=== PATIENT | male | born 1980 | race Two or more races ===

== ENCOUNTER 2024-08-15 02:15 | Inpatient (IN) | payer BC, OTHER ==
[2024-08-15] VITALS (7 sets, daily range): BP systolic 139–168; BP diastolic 77–111; PULSE 67–100; RESP 14–21; TEMP 97.4–98.4; O2SAT 94–98
[~2024-08-15] VITALS: Ht 180.3 cm; Wt 118.3 kg
--- NOTE | 2024-08-15 02:51 | ED.PDOC ---
History of Present Illness HPI Comments 44 y/o M presents with sudden and unprovoked onset of right sided chest pain, with associated shortness of breath and nausea. Patient reports on symptoms beginning 2300, last night. He describes it as an 8/10 in severity and sharp in quality. He only has a history of uncontrolled HTN. No recent stressors, st renuous activities, sick contact, or injuries reported. Patient denies having any palpitations, vomiting, coughing, congestion, fever, chills, or further associated symptoms. Chief Complaint: Chest Pain Time Seen by MD: 02:30 Reviewed Notes: Nurses Notes, Medications, Allergies Allergies: Coded Allergies: NO KNOWN ALLERGIES (Unverified , 08/15/24) Information Source: Patient Mode of Arrival: Ambulatory Severity: Moderate Timing: Hours Duration: Since onset Prehospital treatment: None Past Medical History PAST MEDICAL HISTORY: HTN Surgical History: Denies all surgeries Family History Family History: Unknown Social History Smoker: Non-Smoker Alcohol: Denies ETOH Use Drugs: Denies Drug Use Lives In: Home All Other Systems: Reviewed and Negative (Comprehensive systems review obtained and negative except for what is stated in the HPI.) Physical Exam General Appearance: No Apparent Distress, Normal HEENT: Normal ENT Inspection, Pharynx Normal, TMs Normal Neck: Full Range of Motion, Non-Tender, Normal, Normal Inspection Respiratory: Chest Non-Tender, Lungs Clear, No Accessory Muscle Use, No Respiratory Distress, Normal Breath Sounds Cardiovascular: No Edema, No JVD, No Murmur, No Gallop, Normal Peripheral Pulses, Regular Rate/Rhythm Breast Exam: Deferred Gastrointestinal: No Organomegaly, Non Tender, No Pulsatile Mass, Normal Bowel Sounds, Soft Genitalia: Deferred Pelvic: Deferred Rectal: Deferred Extremities: No calf tenderness, Normal capillary refill, Normal inspection, Normal range of motion, Non-tender, No pedal edema Musculoskeletal : Apperance: Normal 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 Was a procedure done?: No Differential Dx Considerations may include: VA, PE, ACS, URI, PNA, viral syndrome, musculoskeletal pain, anxiety, angina, costochondritis, pericarditis, gastritis, among others X-Ray, Labs, Meds, VS Vital Signs Date Time Temp Pulse Resp B/P (MAP) Pulse Ox O2 Delivery O2 Flow Rate FiO2 08/15/24 04:55 62 11 177/109 08/15/24 04:54 177/109 08/15/24 04:25 69 15 179/102 08/15/24 03:54 198/107 08/15/24 03:35 98.4 70 21 198/107 (137) 100 98.4 08/15/24 03:35 70 21 96 Room Air* 0 21 08/15/24 03:34 73 12 171/106 08/15/24 03:23 67 08/15/24 03:04 72 18 189/105 08/15/24 02:38 72 08/15/24 02:32 97.3 71 20 189/105 (133) 100 97.3 Lab Test 08/15/24 03:23 08/15/24 02:30 Range/Units Troponin I High Sensitivity 5 6 </=54 ng/L White Blood Count 9.5 4.4-10.8 10^3/uL Red Blood Count 4.93 4.5-5.90 10^6/uL Hemoglobin 15.8 13.5-17.5 g/dL Hematocrit 45.4 41.0-53.0 % Mean Corpuscular Volume 92.2 80.0-100.0 fL Mean Corpuscular Hemoglobin 32.1 H 28.0-32.0 pg Mean Corpuscular Hemoglobin Concent 34.8 32.0-36.0 g/dL Red Cell Distribution Width 13.2 11.8-14.3 % Platelet Count 190 140-450 10^3/uL Mean Platelet Volume 8.6 6.9-10.8 fL Neutrophils (%) (Auto) 67.2 37.0-80.0 % Lymphocytes (%) (Auto) 21.8 10.0-50.0 % Monocytes (%) (Auto) 7.0 0.0-12.0 % Eosinophils (%) (Auto) 3.2 0.0-7.0 % Basophils (%) (Auto) 0.8 0.0-2.0 % Neutrophils # (Auto) 6.4 1.6-8.6 10 ^3/uL Lymphocytes # (Auto) 2.1 0.4-5.4 10 ^3/uL Monocytes # (Auto) 0.7 0-1.3 10 ^3/uL Eosinophils # (Auto) 0.3 0-0.8 10 ^3/uL Basophils # (Auto) 0.1 0-0.2 10 ^3/uL Nucleated Red Blood Cells 0.0 % Sodium Level 135 L 136-145 mmol/L Potassium Level 3.7 3.5-5.1 mmol/L Chloride Level 105 98-107 mmol/L Carbon Dioxide Level 19 L 20-31 mmol/L Anion Gap 11 5-15 Blood Urea Nitrogen 12 9-23 mg/dL Creatinine 0.90 0.700-1.30 mg/dL Glomerular Filtration Rate Calc 107 >90 mL/min BUN/Creatinine Ratio 13.3 10.0-20.0 Serum Glucose 254 H 74-106 mg/dL Calcium Level 8.7 8.7-10.4 mg/dL Current Medications Medications (Trade) Dose Ordered Sig/Dayo Route Start Time Stop Time Status Last Admin Sodium Chloride 1,000 ml @ 1,000 mls/hr Q1H ONCE IV 08/15/24 02:45 08/15/24 03:44 DC 08/15/24 03:02 Ondansetron HCl (Zofran) 4 mg ONCE ONCE IV 08/15/24 02:45 08/15/24 02:46 DC 08/15/24 02:58 Morphine Sulfate 4 mg ONCE ONCE IV 08/15/24 02:45 08/15/24 02:46 DC 08/15/24 03:04 Aspirin 324 mg ONCE ONCE PO 08/15/24 02:45 08/15/24 02:46 DC 08/15/24 02:58 Nitroglycerin (Ntrostat Sublingual) 0.4 mg ONCE ONCE SL 08/15/24 04:00 08/15/24 04:01 DC 08/15/24 03:54 Morphine Sulfate 4 mg ONCE ONCE IV 08/15/24 04:15 08/15/24 04:16 DC 08/15/24 04:25 Ondansetron HCl (Zofran) 4 mg ONCE ONCE IV 08/15/24 04:15 08/15/24 04:16 DC 08/15/24 04:24 Time of 1ST Reevaluation: 03:00 Reevaluation 1ST: Unchanged Patient Education/Counseling: Diagnosis, Treatment Family Education/Counseling: No Family Present Additional Information Previous visits reviewed: N/A The following tests were ordered, and results were reviewed by me: CMP, CBC, EKG, BMP, CXR, troponin Additional Information was gathered from interviewing the following independent historians: N/A I reviewed and agreed with the following test results read by other providers: CXR I discussed treatment and results with medical personnel and: patient Departure 1 Departure Time of Disposition: 05:28 (Patient presented with abdominal pain that was concerning for possible appendicits, gastritis, cholecystitis, colitis, gastroenteritis, sbo, or orther possible surgical emergency. Data: 1. I ordered and reviewed the result of at least 3 labs including a CBC, BMP, and Urinalysis. 2. I independently interpreted the following tests: CT Abdoment and Pelvis is concerning for acute cholecystitis.Risk:This patient has a high risk of morbidity due to further diagnostic testing or treatment and may suffer from an acute abdominal process disorder. Workup reveals concern for acute cholecystitis and patient should be admitted for further workup. and possible expert consultation. ) Impression: Primary Impression: Acute cholecystitis Additional Impression: Intractable abdominal pain Disposition: ADMITTED INPATIENT Admit to: Med Surg Condition: Serious Critical Care Note Critical Care Time?: Yes Critical care comment: Intractable abdominal pain Authorized and Performed by: Adolfo Etienne MD Total critical care time: Approximately 42 minutes Due to a high probability of clinically significant, life threatening deterioration, the patient required my highest level of preparedness to intervene emergently and I personally spent this critical care time directly and personally managing the patient. This critical care time included obtaining a history; examining the patient; pulse oximetry; ordering and review of studies; arranging urgent treatment with development of a management plan; evaluation of patient's response to treatment; frequent reassessment; and, discussions with other providers. This critical care time was performed to assess and manage the high probability of imminent, life-threatening deterioration that could result in multi-organ failure. It was exclusive of separately billable procedures and treating other patients and teaching time. Please see my other sections and the rest of the note for further information on patient assessment and treatment. Stability Stability form required: No Heart Score Heart Score: Heart Score Response (Comments) Value History Slightly Suspicious 0 EKG Normal 0 Age 45-64 1 Risk Factors 1 or 2 risk factors 1 Troponin Normal limit 0 Total 2 I personally scribed for ADOLFO ETIENNE MD ([email or web address]) on 08/15/24 at 02:51. Electronically submitted by Wolfgang Bush ([email or web address]). ADOLFO ETIENNE MD Aug 15, 2024 02:51
[2024-08-15 02:58] LABS: Basophils # (auto) 0.1 10 ^3/uL (0-0.2); Basophils % (auto) 0.8 % (0.0-2.0); Eosinophils # (auto) 0.3 10 ^3/uL (0-0.8); Eosinophils % (auto) 3.2 % (0.0-7.0); Hematocrit 45.4 % (41.0-53.0); Hemoglobin 15.8 g/dL (13.5-17.5); Lymphocytes # (auto) 2.1 10 ^3/uL (0.4-5.4); Lymphocytes % (auto) 21.8 % (10.0-50.0); Mean Corpuscular Hemoglobin 32.1 pg (28.0-32.0); Mean Corpuscular Hgb Conc. 34.8 g/dL (32.0-36.0); Mean Corpuscular Volume 92.2 fL (80.0-100.0); Monocytes # (auto) 0.7 10 ^3/uL (0-1.3); Neutrophils # (auto) 6.4 10 ^3/uL (1.6-8.6); Neutrophils % (auto) 67.2 % (37.0-80.0); Platelet Count (auto) 190 10^3/uL (140-450); Red Blood Cells 4.93 10^6/uL (4.5-5.90); Red Cell Distribution Width 13.2 % (11.8-14.3); White Blood Cell 9.5 10^3/uL (4.4-10.8)
[2024-08-15] MEDS: ASPirin 81 mg TAB PO ONE (02:58)
[2024-08-15] MEDS: ONDANSETRON HCL 4 MG/2 ML VIAL IV ONE ×2 (02:58→04:24)
[2024-08-15] MEDS: SODIUM CHLORIDE 0.9% 1,000 ML IV ONE (03:02)
[2024-08-15] MEDS: MORPHINE SULFATE 4 MG/ML SYR/VIAL IV ONE ×2 (03:04→04:25)
[2024-08-15] MEDS: NITROGLYCERIN 0.4 MG SL TAB SL ONE (03:54)
--- NOTE | 2024-08-15 03:57 | DVH ---
CHEST RADIOGRAPH Indication: CHEST PAIN Technique: Single frontal view of the chest was obtained COMPARISON: None FINDINGS: Lines and Tubes: None Lungs: Clear Pleura: No effusion. No pneumothorax. Cardiomediastinal contours: Unremarkable Bones: Unremarkable IMPRESSION: 1. No acute disease.
[2024-08-15 04:15] LABS: Chloride 105 mmol/L (98-107); Potassium 3.7 mmol/L (3.5-5.1)
[2024-08-15 04:16] LABS: Anion Gap 11 (5-15)
[2024-08-15 04:19] LABS: Calcium 8.7 mg/dL (8.7-10.4); Carbon Dioxide 19 mmol/L (20-31); Sodium 135 mmol/L (136-145)
[2024-08-15 04:22] LABS: Blood Urea Nitrogen 12 mg/dL (9-23); Glucose 254 mg/dL (74-106)
[2024-08-15 04:23] LABS: BUN/Creatinine Ratio 13.3 (10.0-20.0)
[2024-08-15] MEDS: IOHEXOL 300 MG/ML 100ML BOTTLE IJ ONE (04:44)
--- NOTE | 2024-08-15 05:11 | DVH ---
Exam: CT CT AB PEL WITH IV CON ONLY History: Abdominal pain Comparison Study: None Contrast: Type of contrast: Contrast injected: Contrast wasted: 0 TECHNIQUE: A digital wall man image was obtained. During the uneventful, intravenous administration of c ontrast material, multislice data acquisition was obtained through the abdomen and pelvis. The data s et was subsequently reconstructed into axial images. Images were reviewed on a work station using a c ombination of axial and multiplanar using a variety of window levels and settings. Radiation Dose Information: CT Dose: CTDI volume is 27.19 mGy. Dose-length product is 1603.91 mGy*cm FINDINGS: Lung Bases: Bibasilar atelectasis. Normal heart size. No pleural or pericardial effusion. Liver: The liver is normal in size. No focal lesions. Diffusely hypoattenuating liver parenchyma con sistent with hepatic steatosis. Normal hepatic vascular enhancement. Gallbladder and Biliary Tree: Gallstone. Mild pericholecystic fat stranding. No intrahepatic or extra hepatic biliary ductal dilatation. Spleen: Unremarkable Pancreas: The pancreas is normal in appearance without focal lesions or abnormal enhancement. Adrenal Glands: Unremarkable Kidneys: Kidneys demonstrate normal symmetric enhancement without focal lesions, calculi or hydroneph rosis. Bladder: Unremarkable Bowel: The stomach is grossly normal in appearance. The small bowel is normal in caliber. Sigmoid di verticulosis without acute diverticulitis. Normal appendix. Peritoneum: No pneumoperitoneum. No ascites. Lymphadenopathy: No mesenteric, retroperitoneal or periportal lymphadenopathy. Abdominal Wall and Mesentery: Unremarkable. Vasculature: The visualized abdominal aorta is normal in size and caliber. Abdominal and pelvic vess els demonstrate normal enhancement. Pelvic Organs: Unremarkable Musculoskeletal: No aggressive focal bony lesions, acute fractures or dislocation. Soft tissues: Unremarkable. IMPRESSION: 1. Gallstone and pericholecystic fat stranding. Right upper quadrant ultrasound is recommended for fu rther evaluation. Acute cholecystitis is not excluded. 2. Hepatic steatosis. 3. Sigmoid diverticulosis without acute diverticulitis. All CT scans at this medical facility are performed using dose modulation techniques as appropriate t o a performed exam including the following: Automated exposure control was utilized; adjustment of th e MA and/or KV according to patient size; and use of iterative reconstruction technique.
[2024-08-15] MEDS: KETAMINE 50mg/ML 10ml Vial (500mg/10ml) IV ONE ×2 (05:33→05:35)
[2024-08-15] MEDS: metroNIDAZOLE 500MG/100ML 100 ML IV ONE (05:36)
--- NOTE | 2024-08-15 06:36 | ECG ---
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
--- NOTE | 2024-08-15 06:42 | ECG ---
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
[2024-08-15] MEDS: ceFAZolin 2 GM/D5W50ml 50 ML IV ONE (06:46)
[2024-08-15] MEDS ORDERED: MORPHINE SULFATE INJ 2 MG/ml SYRG IV PRN (07:45)
[2024-08-15] MEDS ORDERED: DOCUSATE SOD 100 MG CAP PO PRN (07:45)
[2024-08-15] MEDS ORDERED: ONDANSETRON HCL 4 MG/2 ML VIAL IV PRN (07:45)
--- NOTE | 2024-08-15 07:53 | DVH ---
INDICATION: pain, nausea TECHNIQUE: Multiple real-time sonographic images of the abdomen were obtained. COMPARISON: None FINDINGS: Liver is increased in echogenicity. The liver measures 16.8 cm. No intrahepatic biliary ductal dilatation is noted. The gallbladder wall measures 0.4 cm and is unremarkable. Cholelithiasis. No pericholecystic fluid or edema. The common duct measures 0.6 cm and is unremarkable. The right kidney measures 11.3 cm. No hydronephrosis. The left kidney measures 11.9 cm. No hydronephr osis. The spleen measures 12.3 cm, within normal limits. The echogenicity is within normal limits. The pancreas is not well visualized due to obscuration from bowel gas. The visualized portions of the IVC and aorta are grossly unremarkable. IMPRESSION: Hepatomegaly and hepatic steatosis. Cholelithiasis and mildly thickened gallbladder wall.
--- NOTE | 2024-08-15 07:56 | DVHHP2 ---
History of Present Illness Reason for Visit: Chest pain History of Present Illness Brandon Mobley is a 44-year-old male with past medial history of hypertension, but has not been on medication for over 4 years due to losing weight. Patient comes in today with complaints of chest pain. He states the pain is epigastric and radiates to his RUQ. States the pain started about 1999 last night after eating an asada quesadilla about 1900. He does have associated nausea with the pain. Past Surgical History: None Smoke: <1 pack per day ALCOHOL: heavy (daily, about 3 beers) Drugs: Marijuana Lives: with Family Domestic Violence: Neg Review of Systems Constitutional: No: Fever, Chills, Sweats, Weakness, Malaise, Other Eyes: No: Pain, Vision change, Conjunctivae inflammation, Eyelid inflammation, Other, Redness ENT: No: Ear pain, Ear discharge, Nose pain, Nose discharge, Nose congestion, Mouth pain, Mouth swelling, Throat pain, Throat swelling, Other Respiratory: No: Cough, Dry, Shortness of breath, SOB with excertion, Wheezing, Hemoptysis, Pleuritic Pain, Sputum, Wheezing, Other Cardiovascular: Chest Pain (epigastric); No: Palpitations, Orthopnea, Paroxysmal Noc. Dyspnea, Edema, Lt Headedness, Other Gastrointestinal: Nausea, Abdominal Pain; No: Vomiting, Diarrhea, Constipation, Melena, Hematochezia, Other Genitourinary: No Dysuria, No Frequency, No Incontinence, No Hematuria, No Retention, No Other Musculoskeletal: No: other, neck pain, shoulder pain, arm pain, back pain, hand pain, leg pain, foot pain Skin: No: Rash, Lesions, Jaundice, Bruising, Other Neurological: No: Weakness, Numbness, Incoordination, Change in speech, Confusion, Seizures, Other Allergies: Coded Allergies: NO KNOWN ALLERGIES (Unverified , 08/15/24) Medications Current Medications Medications Dose Ordered Sig/Dayo Route Start Time Stop Time Status Last Admin Dose Admin Sodium Chloride 1,000 ml @ 100 mls/hr Q10H IV 08/15/24 07:45 UNV Acetaminophen/ Hydrocodone Bitart 1 tab Q4HP PRN PO 08/15/24 07:45 UNV Ondansetron HCl 4 mg Q4HP PRN IV 08/15/24 07:45 UNV Docusate Sodium 100 mg BIDPRN PRN PO 08/15/24 07:45 UNV Acetaminophen 650 mg Q6HP PRN PO 08/15/24 07:45 UNV Morphine Sulfate 4 mg Q4HPRN PRN IV 08/15/24 07:45 UNV Hydrochlorothiazide 25 mg DAILY PO 08/15/24 10:00 UNV Hydralazine HCl 10 mg Q6HP PRN IV 08/15/24 07:45 UNV Exam Vital Signs Vital Signs Date Time Temp Pulse Resp B/P (MAP) Pulse Ox O2 Delivery O2 Flow Rate FiO2 08/15/24 07:00 72 18 184/107 (132) 98 08/15/24 03:35 98.4 98.4 08/15/24 03:35 Room Air* 0 21 General Appearance: Alert, Oriented X3, Cooperative, moderate distress HEENT: Atraumatic, PERRLA Respiratory: Clear to auscultation, Normal air movement Cardiovascular: Regular rate, Normal S1, Normal S2 Abdominal: Normal bowel sounds, Soft, Other (RUQ pain) Extremities: No clubbing, No cyanosis, No edema, Normal pulses, No tenderness/swelling Skin: No rashes, No breakdown, No significant lesion Neuro: Normal gait, Normal speech, Strength at 5/5 X4 ext, Normal tone Psych/Mental Status: Mental status NL, Mood NL Labs/Xrays Labs Test 08/15/24 03:23 08/15/24 02:30 Range/Units Troponin I High Sensitivity 5 </=54 ng/L White Blood Count 9.5 4.4-10.8 10^3/uL Red Blood Count 4.93 4.5-5.90 10^6/uL Hemoglobin 15.8 13.5-17.5 g/dL Hematocrit 45.4 41.0-53.0 % Mean Corpuscular Volume 92.2 80.0-100.0 fL Mean Corpuscular Hemoglobin 32.1 H 28.0-32.0 pg Mean Corpuscular Hemoglobin Concent 34.8 32.0-36.0 g/dL Red Cell Distribution Width 13.2 11.8-14.3 % Platelet Count 190 140-450 10^3/uL Mean Platelet Volume 8.6 6.9-10.8 fL Neutrophils (%) (Auto) 67.2 37.0-80.0 % Lymphocytes (%) (Auto) 21.8 10.0-50.0 % Monocytes (%) (Auto) 7.0 0.0-12.0 % Eosinophils (%) (Auto) 3.2 0.0-7.0 % Basophils (%) (Auto) 0.8 0.0-2.0 % Neutrophils # (Auto) 6.4 1.6-8.6 10 ^3/uL Lymphocytes # (Auto) 2.1 0.4-5.4 10 ^3/uL Monocytes # (Auto) 0.7 0-1.3 10 ^3/uL Eosinophils # (Auto) 0.3 0-0.8 10 ^3/uL Basophils # (Auto) 0.1 0-0.2 10 ^3/uL Nucleated Red Blood Cells 0.0 % Sodium Level 135 L 136-145 mmol/L Potassium Level 3.7 3.5-5.1 mmol/L Chloride Level 105 98-107 mmol/L Carbon Dioxide Level 19 L 20-31 mmol/L Anion Gap 11 5-15 Blood Urea Nitrogen 12 9-23 mg/dL Creatinine 0.90 0.700-1.30 mg/dL Glomerular Filtration Rate Calc 107 >90 mL/min BUN/Creatinine Ratio 13.3 10.0-20.0 Serum Glucose 254 H 74-106 mg/dL Calcium Level 8.7 8.7-10.4 mg/dL Exam: CT CT AB PEL WITH IV CON ONLY FINDINGS: Lung Bases: Bibasilar atelectasis. Normal heart size. No pleural or pericardial effusion. Liver: The liver is normal in size. No focal lesions. Diffusely hypoattenuating liver parenchyma consistent with hepatic steatosis. Normal hepatic vascular enhancement. Gallbladder and Biliary Tree: Gallstone. Mild pericholecystic fat stranding. No intrahepatic or extrahepatic biliary ductal dilatation. Spleen: Unremarkable Pancreas: The pancreas is normal in appearance without focal lesions or abnormal enhancement. Adrenal Glands: Unremarkable Kidneys: Kidneys demonstrate normal symmetric enhancement without focal lesions, calculi or hydronephrosis. Bladder: Unremarkable Bowel: The stomach is grossly normal in appearance. The small bowel is normal in caliber. Sigmoid diverticulosis without acute diverticulitis. Normal appendix. Peritoneum: No pneumoperitoneum. No ascites. Lymphadenopathy: No mesenteric, retroperitoneal or periportal lymphadenopathy. Abdominal Wall and Mesentery: Unremarkable. Vasculature: The visualized abdominal aorta is normal in size and caliber. Abdominal and pelvic vessels demonstrate normal enhancement. Pelvic Organs: Unremarkable Musculoskeletal: No aggressive focal bony lesions, acute fractures or dislocation. Soft tissues: Unremarkable. IMPRESSION: 1. Gallstone and pericholecystic fat stranding. Right upper quadrant ultrasound is recommended for further evaluation. Acute cholecystitis is not excluded. 2. Hepatic steatosis. 3. Sigmoid diverticulosis without acute diverticulitis. CHEST RADIOGRAPH FINDINGS: Lines and Tubes: None Lungs: Clear Pleura: No effusion. No pneumothorax. Cardiomediastinal contours: Unremarkable Bones: Unremarkable IMPRESSION: 1. No acute disease. TECHNIQUE: Multiple real-time sonographic images of the abdomen were obtained. FINDINGS: Liver is increased in echogenicity. The liver measures 16.8 cm. No intrahepatic biliary ductal dilatation is noted. The gallbladder wall measures 0.4 cm and is unremarkable. Cholelithiasis. No pericholecystic fluid or edema. The common duct measures 0.6 cm and is unremarkable. The right kidney measures 11.3 cm. No hydronephrosis. The left kidney measures 11.9 cm. No hydronephrosis. The spleen measures 12.3 cm, within normal limits. The echogenicity is within normal limits. The pancreas is not well visualized due to obscuration from bowel gas. The visualized portions of the IVC and aorta are grossly unremarkable. IMPRESSION: Hepatomegaly and hepatic steatosis. Cholelithiasis and mildly thickened gallbladder wall. 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 Procedure Category Date Status Time Abdomen Complete US 08/15/24 Taken Sonogram 06:53 Admit ADMIT 08/15/24 Transmitted 07:31 Code Status CODE 08/15/24 Transmitted 07:31 Sodium Chloride 0.9% PHA 08/15/24 Logged 07:45 Hydrocodone-Acet PHA 08/15/24 Logged 5/325mg Tab ([place] 07:45 Ondansetron Hcl PHA 08/15/24 Logged (Zofran) 07:45 Docusate Sodium PHA 08/15/24 Logged Capsule (Colace 07:45 Complete Blood Count LAB 08/16/24 Verified 04:00 Comprehensive LAB 08/16/24 Verified Metabolic Panel 04:00 Condition: Serious MERARI 08/15/24 In Process 07:31 Acetaminophen Tablet PHA 08/15/24 Logged (Tylenol Tablet) 07:45 Morphine Sulfate PHA 08/15/24 Logged Injection 07:45 Hydrochlorothiazide PHA 08/15/24 Logged Tablet (Hydrochlorot 10:00 Hydralazine Injection PHA 08/15/24 Logged (Apresoline Inject 07:45 Npo Except For MERARI 08/15/24 In Process Medications 07:39 Folic Acid Tablet PHA 08/15/24 Transmitted 10:00 Multiple Vitamin PHA 08/15/24 Transmitted Tablet (Mvi Tab) 10:00 Thiamine Tab PHA 08/15/24 Transmitted 10:00 Date of Service: Aug 15, 2024 Billing Provider: JYOTHI CHEN Common Visit Codes: [id number] INP/OBS CARE (MOD) JYOTHI CHEN Aug 15, 2024 07:55
[2024-08-15] MEDS: SODIUM CHLORIDE 0.9% 1,000 ML IV SCH (07:57)
--- NOTE | 2024-08-15 08:45 | DVHINCON2 ---
Consultation - Surgical Date Seen: Aug 15, 2024 Referring Physician Referring Physician ER Reason for Consultation abd pain History of Present Illness History of Present Illness 44M w 1d h/o postprandial epigastric and RUQ abd pain radiating to the back. Past Medical/Surgical History Past Medical/Surgical History PMHx: HTN Surg Hx: none Family and Social History Family and Social History denies drugs, etoh, tobacco Allergies and medications Allergies: Coded Allergies: NO KNOWN ALLERGIES (Unverified , 08/15/24) Current Medications Current Medications Medications (Trade) Dose Ordered Sig/Dayo Route PRN Reason Start Time Stop Time Status Last Admin Acetaminophen (Tylenol Tablet) 650 mg Q6HP PRN PO PAIN SCALE 1-3 OR TEMP>100.4 08/15/24 07:45 Acetaminophen/ Hydrocodone Bitart ([place] 5/325MG Tab) 1 tab Q4HP PRN PO MODERATE PAIN (4-6 PAIN SCALE) 08/15/24 07:45 Dextrose 50 ml UD PRN IV Blood Sugar LESS THAN 60 08/15/24 11:15 Diagnostic Test (Pha) (Accu-Chek Comfort Curve T) 1 strip Q6HR 08/15/24 12:00 08/15/24 12:10 Docusate Sodium (Colace Capsule) 100 mg BIDPRN PRN PO FOR CONSTIPATION 08/15/24 07:45 Folic Acid 1 mg DAILY PO 08/15/24 10:00 08/15/24 09:30 Hydralazine HCl (Apresoline Injection) 10 mg Q6HP PRN IV SBP>150 08/15/24 07:45 Hydrochlorothiazide (hydroCHLOROthiazide TABLET) 25 mg DAILY PO 08/15/24 10:00 08/15/24 09:30 Insulin Human Regular (InsuLIN R) Q6HR SC 08/15/24 12:00 08/15/24 12:14 Lorazepam (Ativan Inj) 1 mg Q2HP PRN IV ALCOHOL WITHDRAWAL SYMPTOMS 08/15/24 10:15 Morphine Sulfate 4 mg Q4HPRN PRN IV SEVERE PAIN (7-10 PAIN SCALE) 08/15/24 07:45 Multivitamins (Mvi Tab) 1 tab DAILY PO 08/15/24 10:00 08/15/24 09:30 Ondansetron HCl (Zofran) 4 mg Q4HP PRN IV NAUSEA / VOMITING 08/15/24 07:45 Sodium Chloride 1,000 ml @ 100 mls/hr Q10H IV 08/15/24 07:45 08/15/24 07:57 Thiamine HCl 100 mg DAILY PO 08/15/24 10:00 08/15/24 09:30 Review of systems Review of Systems: HEENT:Normal, CVS:Normal, RESPIRATORY:Normal, GI:Abnormal (abd pain, postprandial abd pain, nausea), :Normal, MSK:Normal, NEURO:Normal Examination Vital signs Vital Signs Date Time Temp Pulse Resp B/P (MAP) Pulse Ox O2 Delivery O2 Flow Rate FiO2 08/15/24 08:03 76 08/15/24 07:31 98.4 13 144/77 (99) 98 98.4 08/15/24 07:20 Nasal Cannula* 2 28 Medications Current Medications Medications (Trade) Dose Ordered Sig/Dayo Route PRN Reason Start Time Stop Time Status Last Admin Sodium Chloride 1,000 ml @ 100 mls/hr Q10H IV 08/15/24 07:45 08/15/24 07:57 Acetaminophen/ Hydrocodone Bitart ([place] 5/325MG Tab) 1 tab Q4HP PRN PO MODERATE PAIN (4-6 PAIN SCALE) 08/15/24 07:45 Ondansetron HCl (Zofran) 4 mg Q4HP PRN IV NAUSEA / VOMITING 08/15/24 07:45 Docusate Sodium (Colace Capsule) 100 mg BIDPRN PRN PO FOR CONSTIPATION 08/15/24 07:45 Acetaminophen (Tylenol Tablet) 650 mg Q6HP PRN PO PAIN SCALE 1-3 OR TEMP>100.4 08/15/24 07:45 Morphine Sulfate 4 mg Q4HPRN PRN IV SEVERE PAIN (7-10 PAIN SCALE) 08/15/24 07:45 Hydrochlorothiazide (hydroCHLOROthiazide TABLET) 25 mg DAILY PO 08/15/24 10:00 Hydralazine HCl (Apresoline Injection) 10 mg Q6HP PRN IV SBP>150 08/15/24 07:45 Folic Acid 1 mg DAILY PO 08/15/24 10:00 Multivitamins (Mvi Tab) 1 tab DAILY PO 08/15/24 10:00 Thiamine HCl 100 mg DAILY PO 08/15/24 10:00 Laboratory Labs Test 08/15/24 08:37 08/15/24 03:23 08/15/24 02:30 Range/Units Troponin I High Sensitivity 5 </=54 ng/L White Blood Count 9.5 4.4-10.8 10^3/uL Red Blood Count 4.93 4.5-5.90 10^6/uL Hemoglobin 15.8 13.5-17.5 g/dL Hematocrit 45.4 41.0-53.0 % Mean Corpuscular Volume 92.2 80.0-100.0 fL Mean Corpuscular Hemoglobin 32.1 H 28.0-32.0 pg Mean Corpuscular Hemoglobin Concent 34.8 32.0-36.0 g/dL Red Cell Distribution Width 13.2 11.8-14.3 % Platelet Count 190 140-450 10^3/uL Mean Platelet Volume 8.6 6.9-10.8 fL Neutrophils (%) (Auto) 67.2 37.0-80.0 % Lymphocytes (%) (Auto) 21.8 10.0-50.0 % Monocytes (%) (Auto) 7.0 0.0-12.0 % Eosinophils (%) (Auto) 3.2 0.0-7.0 % Basophils (%) (Auto) 0.8 0.0-2.0 % Neutrophils # (Auto) 6.4 1.6-8.6 10 ^3/uL Lymphocytes # (Auto) 2.1 0.4-5.4 10 ^3/uL Monocytes # (Auto) 0.7 0-1.3 10 ^3/uL Eosinophils # (Auto) 0.3 0-0.8 10 ^3/uL Basophils # (Auto) 0.1 0-0.2 10 ^3/uL Nucleated Red Blood Cells 0.0 % Sodium Level 135 L 136-145 mmol/L Potassium Level 3.7 3.5-5.1 mmol/L Chloride Level 105 98-107 mmol/L Carbon Dioxide Level 19 L 20-31 mmol/L Anion Gap 11 5-15 Blood Urea Nitrogen 12 9-23 mg/dL Creatinine 0.90 0.700-1.30 mg/dL Glomerular Filtration Rate Calc 107 >90 mL/min BUN/Creatinine Ratio 13.3 10.0-20.0 Serum Glucose 254 H 74-106 mg/dL Calcium Level 8.7 8.7-10.4 mg/dL Examination: GENERAL:Normal (nad, wd/wn), HEENT:Normal (anicertic, eomi), NECK:Normal (supple. trachea midline), LUNGS:Normal (ctasb, unlabored), CVS:Normal (rrr, pulses equal b/l), ABDOMEN:Abnormal (soft, distended, RUQ ttp, no hernias), MSK:Normal (atraumatic, full ROM b/l UE/LE), SKIN:Normal (anicteric, c/d/i), NEURO:Normal (grossly intact, nonfocal) Problem List/Assessment/Plan Problems: (1) Biliary colic (2) Cholelithiasis (3) Symptomatic cholelithiasis (4) Cholecystitis with cholelithiasis (5) Acute cholecystitis (6) Intractable abdominal pain Assessment and Plan 44M w no PMHx w 1d h/o epigastric abd pain radiating to the RUQ, and postprandial RUQ abd pain WBC WNL, mild AST/ALT elevation in 60s, Tb and ALP wnl RUQ US w choleithiasis and mild GB wall thickening biliary colic symptomatic cholelithiasis calculous cholecystitis - OR jessica for lap dalia - CLD, NPO after MN - analgesics prn - no ABX indicated from surgical stand point - vte ppx, ok for chemical ppx from surgical standpoint Miles Dale MD [phone] Plan discussed with Plan discussed with: Patient Visit Coding Surgery Date of Service if different f: Aug 15, 2024 Billing Provider: MILES DALE MD Surgery Visit Codes: [id number] - INP CONSULT <55 MIN MILES DALE MD Aug 15, 2024 08:45
[2024-08-15 09:01] LABS: Partial Thromboplastin Time 26.4 SEC (24.5-34.5); Prothrombin Time 10.6 sec (9.3-11.8)
[2024-08-15 09:04] LABS: Albumin 4.1 g/dL (3.2-4.8); Alkaline Phosphatase 73 U/L (46-116); Anion Gap 5 (5-15); BUN/Creatinine Ratio 13.1 (10.0-20.0); Bilirubin, Total 0.4 mg/dL (0.2-1.0); Blood Urea Nitrogen 13 mg/dL (9-23); Calcium 9.2 mg/dL (8.7-10.4); Carbon Dioxide 29 mmol/L (20-31); Chloride 103 mmol/L (98-107); Potassium 4.5 mmol/L (3.5-5.1); Sodium 137 mmol/L (136-145); Total Protein 6.4 g/dL (5.7-8.2)
[2024-08-15 09:10] LABS: Alanine Aminotransferase 60 U/L (7-40); Aspartate Aminotransferase 61 U/L (13-40); Glucose 201 mg/dL (74-106)
[2024-08-15] MEDS: THIAMINE HCL 100 MG TAB PO SCH (09:30)
[2024-08-15] MEDS: MULTIPLE VITAMIN TAB PO SCH (09:30)
[2024-08-15] MEDS: FOLIC ACID 1 MG TAB PO SCH (09:30)
[2024-08-15] MEDS: hydroCHLOROthiazide 25 MG TAB PO SCH (09:30)
[2024-08-15] MEDS ORDERED: LORazepam 2MG/ML-1ML VIAL IV PRN (10:15)
[2024-08-15] MEDS ORDERED: DEXTROSE (50%) 50ML SYRG IV PRN (11:15)
[2024-08-15] MEDS: ACCU-CHEK COMFORT CURVE STRIP VI SCH (12:10)
[2024-08-15] MEDS: InsuLIN REG 1unit/0.01ml Soln (100units/ml) SC SCH (12:14)
[2024-08-15] MEDS: hydrALAZINE HCL 20 MG/ML VL IV PRN (14:16)
--- NOTE | 2024-08-15 14:44 | DVHPN2 ---
Subjective Has persistent epigastric and right upper quadrant pain. Reviewed: Care Plan, H&P, Labs, Medications, Previous Orders Changes from previous H/P or p: No Changes General: Per HPI Eyes: No Pain, No Vision change, No Conjunctivae inflammation, No Eyelid inflammation, No Other, No Redness ENT: No Ear pain, No Ear discharge, No Nose pain, No Nose discharge, No Nose congestion, No Mouth pain, No Mouth swelling, No Throat pain, No Throat swelling, No Other Cardiovascular: Chest Pain (epigastric); No Palpitations, No Orthopnea, No Paroxysmal Noc. Dyspnea, No Edema, No Lt Headedness, No Other Respiratory: No Cough, No Dry, No Shortness of breath, No SOB with excertion, No Wheezing, No Hemoptysis, No Pleuritic Pain, No Sputum, No Other Gastrointestinal: Nausea; No Vomiting; Abdominal Pain; No Diarrhea, No Constipation, No Melena, No Hematochezia, No Other Genitourinary: No Dysuria, No Frequency, No Incontinence, No Hematuria, No Retention, No Other Musculoskeletal: No other, No neck pain, No shoulder pain, No arm pain, No back pain, No hand pain, No leg pain, No foot pain Skin: No Rash, No Lesions, No Jaundice, No Bruising, No Other Objective Vitals Vital Signs Date Time Temp Pulse Resp B/P (MAP) Pulse Ox O2 Delivery O2 Flow Rate FiO2 08/15/24 14:16 168/111 08/15/24 08:28 98.4 67 16 98 98.4 08/15/24 08:28 Room Air* 0 21 Intake/Output Intake and Output 08/15/24 07:00 Intake Total 1100 ml Balance 1100 ml Intake IV Total 1100 ml General Appearance: Alert, Oriented X3, Cooperative, mild distress HEENT: Atraumatic, PERRLA Lungs: Clear to auscultation, Normal air movement Cardiovascular: Normal S1, Normal S2 Abdomen: Other (Positive Baker's sign. Epigastric pain) Genitourinary: No Apparent Abnormalities Skin: Dry, Intact Psych/Mental Status: Mental status NL, Mood NL Medications Current Medications Medications Dose Ordered Sig/Dayo Route Start Time Stop Time Status Last Admin Dose Admin Sodium Chloride 1,000 ml @ 100 mls/hr Q10H IV 08/15/24 07:45 08/15/24 07:57 100 MLS/HR Acetaminophen/ Hydrocodone Bitart 1 tab Q4HP PRN PO 08/15/24 07:45 Ondansetron HCl 4 mg Q4HP PRN IV 08/15/24 07:45 Docusate Sodium 100 mg BIDPRN PRN PO 08/15/24 07:45 Acetaminophen 650 mg Q6HP PRN PO 08/15/24 07:45 Morphine Sulfate 4 mg Q4HPRN PRN IV 08/15/24 07:45 Hydrochlorothiazide 25 mg DAILY PO 08/15/24 10:00 08/15/24 09:30 25 MG Hydralazine HCl 10 mg Q6HP PRN IV 08/15/24 07:45 08/15/24 14:16 10 MG Lorazepam 1 mg Q2HP PRN IV 08/15/24 10:15 Diagnostic Test (Pha) 1 strip Q6HR 08/15/24 12:00 08/15/24 12:10 1 STRIP Insulin Human Regular Q6HR SC 08/15/24 12:00 08/15/24 12:14 4 UNITS Dextrose 50 ml UD PRN IV 08/15/24 11:15 Folic Acid 1 mg/ Multivitamins 10 ml/Magnesium Sulfate 8 meq/ Thiamine HCl 100 mg/Dextrose 1,013.2 ml @ 125.001 mls/hr DAILY@1800 INJ 08/15/24 18:00 Laboratory Results Laboratory Tests 08/15/24 02:30 08/15/24 08:37 Chemistry Test 08/15/24 02:30 08/15/24 08:37 Calcium Level 8.7 mg/dL (8.7-10.4) 9.2 mg/dL (8.7-10.4) Albumin 4.1 g/dL (3.2-4.8) Total Protein 6.4 g/dL (5.7-8.2) Coagulation Test 08/15/24 08:37 Prothrombin Time 10.6 sec (9.3-11.8) Prothrombin Time INR 1.00 (0.9-1.15) Activated Partial Thromboplast Time 26.4 SEC (24.5-34.5) LFT Test 08/15/24 08:37 Alanine Aminotransferase (ALT) 60 U/L (7-40) H Alkaline Phosphatase 73 U/L (46-116) Aspartate Amino Transferase (AST) 61 U/L (13-40) H Total Bilirubin 0.4 mg/dL (0.2-1.0) HgA1c, TSH Test 08/15/24 02:30 Hemoglobin A1c 8.2 % A1C (<5.7) H Labs and/or images reviewed: Labs reviewed by me, Image(s) reviewed by me Assessment/Plan Assessment/Plan Impression: -acute cholecystitis -diabetes mellitus, new diagnosis -obesity -polysubstance abuse: Alcohol, tobacco, marijuana -hypertensive crisis Plan: -surgical consultation: Plans for laparoscopic cholecystectomy tomorrow -clear liquid diet, NPO after midnight -continue banana bag daily -pain management -add amlodipine 10 mg p.o. daily -continue anxiolytics, benzodiazepines p.r.n. -repeat labs in a.m. -PPI Long discussion made with the patient regarding plan of care including gallbladder ultrasound as well as CT scan. Patient agreeable for surgery at this time. Total time spent with patient discussing and formulating plan of care: 35 minutes. This medical document was created using an electronic medical record system with [employer] dictation system. Although this document has been carefully reviewed, there may still be some phonetic and typographical errors. These areas are purely typographical due to imperfections of the software programs, and do not reflect any compromise in the patient's medical care. Plan discussed with: Patient, Other (RN) My Orders Orders - BREE HEREDIA NP Procedure Category Date Status Time Folic Acid... PHA 08/15/24 In Process 18:00 Clear Liq Diet DIET 08/15/24 Verified Dinner Npo After Midnight MERARI 08/15/24 Verified 14:40 Npo (Nothing By DIET 08/16/24 Verified Mouth) Diet Breakfast Amlodipine Tablet PHA 08/15/24 Verified (Norvasc Tablet) 14:45 Amlodipine Tablet PHA 08/16/24 Verified (Norvasc Tablet) 10:00 Date of Service: Aug 15, 2024 Billing Provider: BREE HEREDIA NP Common Visit Codes: [id number] INP/OBS CARE(HIGH) BREE HEREDIA NP Aug 15, 2024 14:44
[2024-08-15] MEDS: amLODIPine BESYLATE 5 MG TAB PO ONE (14:55)
[2024-08-15] MEDS: HYDROcodone-ACET 5/325MG TAB PO PRN (16:29)
[2024-08-15] MEDS ORDERED: FOLIC ACID 1 MG, MULTIPLE VITAMIN 10 ML, MAGNESIUM SULF SDV 50% 8 MEQ, THIAMINE INJ 100... INJ SCH (18:00)
[2024-08-15] MEDS: FOLIC ACID 1 MG, MULTIPLE VITAMIN 10 ML, MAGNESIUM SULF SDV 50% 8 MEQ, THIAMINE INJ 100... INJ SCH (20:24)
[2024-08-16 02:35] VITALS: BP 130/74; PULSE 102; RESP 18; TEMP 98.2; O2SAT 97
[2024-08-16] MEDS: MORPHINE SULFATE 4 MG/ML SYR/VIAL IV PRN ×3 (04:34→15:00)
[2024-08-16 06:05] LABS: Basophils # (auto) 0.1 10 ^3/uL (0-0.2); Basophils % (auto) 0.7 % (0.0-2.0); Eosinophils # (auto) 0.3 10 ^3/uL (0-0.8); Eosinophils % (auto) 3.3 % (0.0-7.0); Hematocrit 49.4 % (41.0-53.0); Hemoglobin 17.1 g/dL (13.5-17.5); Lymphocytes # (auto) 1.9 10 ^3/uL (0.4-5.4); Lymphocytes % (auto) 20.1 % (10.0-50.0); Mean Corpuscular Hemoglobin 31.8 pg (28.0-32.0); Mean Corpuscular Hgb Conc. 34.6 g/dL (32.0-36.0); Mean Corpuscular Volume 91.9 fL (80.0-100.0); Monocytes # (auto) 0.7 10 ^3/uL (0-1.3); Monocytes % (auto) 7.6 % (0.0-12.0); Neutrophils # (auto) 6.3 10 ^3/uL (1.6-8.6); Neutrophils % (auto) 68.3 % (37.0-80.0); Nucleated Red Blood Cells % 0.1 %; Platelet Count (auto) 201 10^3/uL (140-450); Red Blood Cells 5.37 10^6/uL (4.5-5.90); Red Cell Distribution Width 13.2 % (11.8-14.3); White Blood Cell 9.2 10^3/uL (4.4-10.8)
[2024-08-16 06:18] LABS: Albumin 4.2 g/dL (3.2-4.8); Alkaline Phosphatase 80 U/L (46-116); Anion Gap 8 (5-15); BUN/Creatinine Ratio 10.1 (10.0-20.0); Bilirubin, Total 0.7 mg/dL (0.2-1.0); Blood Urea Nitrogen 9 mg/dL (9-23); Carbon Dioxide 26 mmol/L (20-31); Chloride 101 mmol/L (98-107); Potassium 3.7 mmol/L (3.5-5.1); Total Protein 6.6 g/dL (5.7-8.2)
[2024-08-16 06:25] LABS: Alanine Aminotransferase 53 U/L (7-40); Aspartate Aminotransferase 43 U/L (13-40); Glucose 189 mg/dL (74-106); Sodium 135 mmol/L (136-145)
[2024-08-16] MEDS ORDERED: ROCURONIUM 10MG/ML 10ML VIAL IV ONE (07:39)
[2024-08-16] MEDS ORDERED: LIDOCAINE HCL 2% TOP JELLY 5ML TOP ONE (07:39)
[2024-08-16] MEDS ORDERED: MIDAZOLAM HCL 2MG/2ML 2ml VIAL (1mg/ml) ONE (07:39)
[2024-08-16] MEDS ORDERED: HYDROmorphone HCL 2 MG/ML VL/or syr ONE (07:39)
[2024-08-16] MEDS ORDERED: DexAMETHasone SOD PHOS 10MG/1ML VIAL INJ ONE (07:39)
[2024-08-16] MEDS ORDERED: fentaNYL CITRATE 100 MCG/2 ML VL ONE (07:39)
[2024-08-16] MEDS ORDERED: SODIUM CHLORIDE LOCK 10 ML ONE (07:39)
[2024-08-16] MEDS ORDERED: PROPOFOL 10 MG/ML 20 ML IV ONE ×2 (07:39→10:03)
[2024-08-16] MEDS ORDERED: LIDOCAINE 1% INJ PF 5ML AMP ONE (07:39)
[2024-08-16] MEDS ORDERED: KETAMINE 50mg/ML 1ml syringe ONE (07:39)
[2024-08-16] MEDS ORDERED: ONDANSETRON HCL 4 MG/2 ML VIAL ONE (07:39)
[2024-08-16] MEDS: KETOROLAC TROMETH 30 MG/ML 1ML VIAL IV ONE (09:30)
[2024-08-16] MEDS ORDERED: MORPHINE SULFATE INJ 2 MG/ml SYRG IV PRN ×3 (09:30→14:15)
[2024-08-16] MEDS: METOCLOPRAMIDE HCL 5MG/ml INJ 2ml VIAL IV ONE (09:30)
[2024-08-16] MEDS: BUPIVACAINE HCL 0.25% P/F 10 ML VIAL ONE (09:32)
[2024-08-16] MEDS: ceFAZolin 2 GM/D5W50ml 50 ML IV ONE (09:50)
[2024-08-16] MEDS: LIDOCAINE W/ EPINEPHRINE 1% 20ML VIAL ONE (10:13)
[2024-08-16] MEDS: POVIDONE IODINE 10 % TOPICAL OINT 30GM TOP ONE (10:30)
[2024-08-16] MEDS ORDERED: SUGAMMADEX 200mg/2ml Vial (100MG/ML) IV ONE (10:37)
[2024-08-16 10:43] VITALS: PULSE 70; RESP 17; O2SAT 93
--- NOTE | 2024-08-16 11:24 | DVHOP ---
DATE OF SURGERY: 08/16/2024 PREOPERATIVE DIAGNOSES: * Cholelithiasis. * Cholecystitis. POSTOPERATIVE DIAGNOSES: * Cholelithiasis. * Cholecystitis. SURGEON: Yoav Craig MD CHAMPION OF SUSTAINABLE DESIGN: Myles Sahu NP ANESTHESIA: General endotracheal. ANESTHESIOLOGIST: Belem Hernandez MD PROCEDURES: Laparoscopy, laparoscopic cholecystectomy. DESCRIPTION OF PROCEDURE: Under general endotracheal anesthesia with the patient's skin prepped and draped, a supraumbilical incision was made and Veress needle inserted by the hanging drop technique in order to establish pneumoperitoneum to 15 mmHg of pressure by insufflation with carbon dioxide. With the abdomen fully distended, the needle was removed and replaced with a 5 mm trocar port through which a 0-degree viewing laparoscope was inserted. Under direct vision, an additional 5 and 10-mm ports inserted through the right anterior axillary line at the level of the umbilicus and through the subxiphoid skin, upper abdomen, respectively. Instrumentation was introduced. Laparoscopy was performed. It was hampered by the patient's morbid obesity; however, no obvious unexpected pathology was encountered. The gallbladder was affected by chronic and acute cholecystitis. The gallbladder was placed on tension. The cystic duct and cystic artery were identified, circumferentially dissected, skeletonized, traced into the hepatic or cystic triangle so as to minimize the potential for an inadvertent injury to the common bile duct. Cystic duct and cystic artery were then divided between metallic tips close to the gallbladder again attempting to avoid injury to the common bile duct. Following division of the cystic duct and cystic artery, gallbladder was placed on tension cephalad and resected from the liver bed by electrocautery and traction. The fully mobilized gallbladder was then placed into a specimen extraction bag, which was retrieved from the peritoneal cavity through the subxiphoid 10-mm port site. Subsequently, the right upper quadrant was irrigated. Irrigant was aspirated. Hemostasis was meticulously inspected and accomplished. At the time of termination of the procedure, there was no evidence of bleeding from either the cholecystectomy sites or from the port sites. Instrumentation was withdrawn. Pneumoperitoneum was evacuated. A 10-mm Alberto-Low drain was placed underneath the liver and exteriorized through the 5-mm port site prior to removal of the instrumentation. The drain was secured with a 2-0 nylon suture following desufflation of the abdomen from which all the instrumentation was removed. The fascial defect closed using 0 Vicryl. Metallic skin aroldo were used for approximation of skin edges. The patient remained hemodynamically stable throughout the procedure, left the operating room following an accurate needle and sponge counts. No family members were present in the waiting room. MD JOANA aMys/IZABELLA/JOSE TID: [id number] RECEIPT: [id number]
[2024-08-16] MEDS ORDERED: GLYCOPYRROLATE 0.2 MG/ML 1ML VIAL IV ONE (11:29)
[2024-08-16] MEDS: ACCU-CHEK COMFORT CURVE STRIP VI ONE (11:33)
[2024-08-16] MEDS: HYDROmorphone HCL 2 MG/ML VL/or syr IV PRN ×2 (14:01)
[2024-08-16] MEDS: HYDROmorphone HCL 2 MG/ML VL/or syr ONE ×2 (14:02→14:16)
--- NOTE | 2024-08-16 14:06 | DVHPN2 ---
Subjective Has persistent epigastric and right upper quadrant pain. Reviewed: Care Plan, H&P, Labs, Medications, Previous Orders Changes from previous H/P or p: No Changes General: Per HPI Eyes: No Pain, No Vision change, No Conjunctivae inflammation, No Eyelid inflammation, No Other, No Redness ENT: No Ear pain, No Ear discharge, No Nose pain, No Nose discharge, No Nose congestion, No Mouth pain, No Mouth swelling, No Throat pain, No Throat swelling, No Other Cardiovascular: Chest Pain (epigastric); No Palpitations, No Orthopnea, No Paroxysmal Noc. Dyspnea, No Edema, No Lt Headedness, No Other Respiratory: No Cough, No Dry, No Shortness of breath, No SOB with excertion, No Wheezing, No Hemoptysis, No Pleuritic Pain, No Sputum, No Other Gastrointestinal: Nausea; No Vomiting; Abdominal Pain; No Diarrhea, No Constipation, No Melena, No Hematochezia, No Other Genitourinary: No Dysuria, No Frequency, No Incontinence, No Hematuria, No Retention, No Other Musculoskeletal: No other, No neck pain, No shoulder pain, No arm pain, No back pain, No hand pain, No leg pain, No foot pain Skin: No Rash, No Lesions, No Jaundice, No Bruising, No Other Objective Vitals Vital Signs Date Time Temp Pulse Resp B/P (MAP) Pulse Ox O2 Delivery O2 Flow Rate FiO2 08/16/24 12:28 66 17 130/82 (98) 97 08/16/24 10:43 Nasal Cannula 2.0 93 08/16/24 10:43 97.6 97.6 Intake/Output Intake and Output 08/16/24 07:00 Intake Total 0 ml Balance 0 ml Intake Oral 0 ml # Voids 6 General Appearance: Alert, Oriented X3, Cooperative, mild distress HEENT: Atraumatic, PERRLA Lungs: Clear to auscultation, Normal air movement Cardiovascular: Normal S1, Normal S2 Abdomen: Other (Positive Baker's sign. Epigastric pain) Genitourinary: No Apparent Abnormalities Skin: Dry, Intact Psych/Mental Status: Mental status NL, Mood NL Medications Current Medications Medications Dose Ordered Sig/Dayo Route Start Time Stop Time Status Last Admin Dose Admin Sodium Chloride 1,000 ml @ 100 mls/hr Q10H IV 08/15/24 07:45 08/15/24 07:57 100 MLS/HR Acetaminophen/ Hydrocodone Bitart 1 tab Q4HP PRN PO 08/15/24 07:45 08/15/24 16:29 1 TAB Ondansetron HCl 4 mg Q4HP PRN IV 08/15/24 07:45 Docusate Sodium 100 mg BIDPRN PRN PO 08/15/24 07:45 Acetaminophen 650 mg Q6HP PRN PO 08/15/24 07:45 Hydrochlorothiazide 25 mg DAILY PO 08/15/24 10:00 08/15/24 09:30 25 MG Hydralazine HCl 10 mg Q6HP PRN IV 08/15/24 07:45 08/15/24 14:16 10 MG Lorazepam 1 mg Q2HP PRN IV 08/15/24 10:15 Diagnostic Test (Pha) 1 strip Q6HR 08/15/24 12:00 08/16/24 11:35 1 STRIP Insulin Human Regular Q6HR SC 08/15/24 12:00 08/16/24 05:28 4 UNITS Dextrose 50 ml UD PRN IV 08/15/24 11:15 Folic Acid 1 mg/ Multivitamins 10 ml/Magnesium Sulfate 8 meq/ Thiamine HCl 100 mg/Dextrose 1,013.2 ml @ 125.001 mls/hr DAILY@1800 INJ 08/15/24 18:00 Cancel Amlodipine Besylate 10 mg DAILY PO 08/16/24 10:00 Pantoprazole Sodium 40 mg DAILY IV 08/16/24 10:00 Morphine Sulfate 4 mg Q4HPRN PRN IV 08/16/24 04:30 08/16/24 04:34 4 MG Folic Acid 1 mg DAILY PO 08/17/24 10:00 Multivitamins 1 tab DAILY PO 08/17/24 10:00 Magnesium Oxide 400 mg DAILY PO 08/17/24 10:00 Thiamine HCl 100 mg DAILY PO 08/17/24 10:00 Cefazolin Sodium 50 ml @ 100 mls/hr Q8HR IV 08/16/24 17:45 UNV Metronidazole 100 ml @ 100 mls/hr Q8HR IV 08/16/24 14:00 UNV Laboratory Results Laboratory Tests 08/16/24 05:18 Chemistry Test 08/16/24 05:18 Albumin 4.2 g/dL (3.2-4.8) Calcium Level 9.0 mg/dL (8.7-10.4) Total Protein 6.6 g/dL (5.7-8.2) LFT Test 08/16/24 05:18 Alanine Aminotransferase (ALT) 53 U/L (7-40) H Alkaline Phosphatase 80 U/L (46-116) Aspartate Amino Transferase (AST) 43 U/L (13-40) H Total Bilirubin 0.7 mg/dL (0.2-1.0) Labs and/or images reviewed: Labs reviewed by me, Image(s) reviewed by me Assessment/Plan Assessment/Plan Impression: -acute cholecystitis -diabetes mellitus, new diagnosis -obesity -polysubstance abuse: Alcohol, tobacco, marijuana -hypertensive crisis Plan: Events: Patient is status post laparoscopic cholecystectomy. Patient's assess recovery room. Somewhat still sedated. -continue thiamine, MVI daily -clear liquid diet per surgery -pain management: [place], p.r.n. morphine -add amlodipine 10 mg p.o. daily -continue anxiolytics, benzodiazepines p.r.n. -repeat labs in a.m. -PPI Long discussion made with the patient regarding plan of care including gallbladder ultrasound as well as CT scan. Patient agreeable for surgery at this time. Total time spent with patient discussing and formulating plan of care: 35 minutes. This medical document was created using an electronic medical record system with [employer] dictation system. Although this document has been carefully reviewed, there may still be some phonetic and typographical errors. These areas are purely typographical due to imperfections of the software programs, and do not reflect any compromise in the patient's medical care. Plan discussed with: Patient, Other (RN) My Orders Orders - BREE HEREDIA TREE TRIMMER Procedure Category Date Status Time Amlodipine Tablet PHA 08/16/24 In Process (Norvasc Tablet) 10:00 Pantoprazole PHA 08/16/24 In Process (Protonix) 10:00 Folic Acid Tablet PHA 08/17/24 In Process 10:00 Multiple Vitamin PHA 08/17/24 In Process Tablet (Mvi Tab) 10:00 Magnesium Oxide PHA 08/17/24 In Process Tablet (Mag-Ox Tablet) 10:00 Thiamine Tab PHA 08/17/24 In Process 10:00 Pharmacy MERARI 08/16/24 In Process Clarification: 13:48 Morphine Sulfate PHA 08/16/24 Verified Injection 14:00 Date of Service: Aug 16, 2024 Billing Provider: BREE HEREDIA NP Common Visit Codes: [id number] INP/OBS CARE(HIGH) BREE HEREDIA NP Aug 16, 2024 14:06
[2024-08-16] MEDS: metroNIDAZOLE 500MG/100ML 100 ML IV SCH (14:47)
[2024-08-16] MEDS: PANTOPRAZOLE 40 MG/10 ML VIAL INJ IV SCH (14:58)
[2024-08-16] MEDS: FOLIC ACID 1 MG TAB PO ONE (15:08)
[2024-08-16] MEDS: MULTIPLE VITAMIN TAB PO ONE (15:09)
[2024-08-16] MEDS: THIAMINE HCL 100 MG TAB PO ONE (15:09)
[2024-08-16] MEDS: MAGNESIUM OXIDE 400 MG TAB PO ONE (15:09)
[2024-08-16] MEDS: amLODIPine BESYLATE 5 MG TAB PO SCH (15:16)
[2024-08-16] MEDS: ACETAMINOPHEN 325 MG TAB PO PRN (15:25)
[2024-08-16] MEDS: ceFAZolin 1GM/50ML 50 ML IV SCH (18:06)
[2024-08-16 21:00] VITALS: BP 124/77; PULSE 78; RESP 16; TEMP 97.8; O2SAT 95
[2024-08-17 01:00] VITALS: BP 129/81; PULSE 90; RESP 18; TEMP 97.3; O2SAT 96
[2024-08-17 05:00] VITALS: BP 140/94; PULSE 86; RESP 18; TEMP 97.9; O2SAT 95
[2024-08-17 07:01] LABS: Basophils # (auto) 0.1 10 ^3/uL (0-0.2); Basophils % (auto) 0.6 % (0.0-2.0); Eosinophils # (auto) 0.3 10 ^3/uL (0-0.8); Eosinophils % (auto) 3.3 % (0.0-7.0); Hematocrit 42.8 % (41.0-53.0); Lymphocytes # (auto) 1.5 10 ^3/uL (0.4-5.4); Lymphocytes % (auto) 16.9 % (10.0-50.0); Mean Corpuscular Hemoglobin 32.5 pg (28.0-32.0); Mean Corpuscular Volume 92.8 fL (80.0-100.0); Monocytes # (auto) 0.6 10 ^3/uL (0-1.3); Monocytes % (auto) 6.8 % (0.0-12.0); Neutrophils # (auto) 6.6 10 ^3/uL (1.6-8.6); Neutrophils % (auto) 72.4 % (37.0-80.0); Nucleated Red Blood Cells % 0.1 %; Platelet Count (auto) 172 10^3/uL (140-450); Red Blood Cells 4.61 10^6/uL (4.5-5.90); Red Cell Distribution Width 13.2 % (11.8-14.3); White Blood Cell 9.1 10^3/uL (4.4-10.8)
[2024-08-17 07:48] VITALS: BP 147/105; PULSE 91; RESP 18; TEMP 99.1; O2SAT 96
[2024-08-17] MEDS: MULTIPLE VITAMIN TAB PO SCH (10:12)
[2024-08-17] MEDS: MAGNESIUM OXIDE 400 MG TAB PO SCH (10:12)
[2024-08-17] MEDS: FOLIC ACID 1 MG TAB PO SCH (10:12)
[2024-08-17] MEDS: THIAMINE HCL 100 MG TAB PO SCH (10:30)
--- NOTE | 2024-08-17 12:55 | ECG ---
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
[2024-08-17 13:00] VITALS: BP_SYST 134; BP_SYST 154; BP_DIAS 69; BP_DIAS 92; PULSE 80; PULSE 88; RESP 18; RESP 20; TEMP 97.3; TEMP 98.7; O2SAT 96
--- NOTE | 2024-08-17 14:17 | DVHPN2 ---
Subjective Date Seen: Aug 17, 2024 Post op day Post op day: 1 Patient reports: No new complaints Nursing reports: No new complaints General: Normal HNT: Normal Cardiovascular: Normal Respiratory: Normal Gastrointestinal: Abdominal Pain Genitourinary: Normal Musculoskeletal: Normal Neurological: Normal Objective Vitals Vital Sign Date Time Temp Pulse Resp B/P (MAP) Pulse Ox O2 Delivery O2 Flow Rate FiO2 08/17/24 13:00 98.7 80 18 134/69 (90) 96 98.7 08/17/24 08:00 Nasal Cannula* 2 28 Total Intake and Output 08/16/24 08/16/24 08/17/24 15:00 23:00 07:00 Intake Total 150 ml 150 ml 1950 ml Output Total 30 ml 40 ml 3100 ml Balance 120 ml 110 ml -1150 ml Medications Current Medications Medications Dose Ordered Sig/Dayo Route Start Time Stop Time Status Last Admin Dose Admin Sodium Chloride 1,000 ml @ 100 mls/hr Q10H IV 08/15/24 07:45 08/17/24 05:16 100 MLS/HR Acetaminophen/ Hydrocodone Bitart 1 tab Q4HP PRN PO 08/15/24 07:45 08/16/24 23:43 1 TAB Ondansetron HCl 4 mg Q4HP PRN IV 08/15/24 07:45 Docusate Sodium 100 mg BIDPRN PRN PO 08/15/24 07:45 Acetaminophen 650 mg Q6HP PRN PO 08/15/24 07:45 08/16/24 15:25 650 MG Hydralazine HCl 10 mg Q6HP PRN IV 08/15/24 07:45 08/15/24 14:16 10 MG Lorazepam 1 mg Q2HP PRN IV 08/15/24 10:15 Diagnostic Test (Pha) 1 strip Q6HR 08/15/24 12:00 08/17/24 12:23 1 STRIP Insulin Human Regular Q6HR SC 08/15/24 12:00 08/17/24 12:28 3 UNITS Dextrose 50 ml UD PRN IV 08/15/24 11:15 Folic Acid 1 mg/ Multivitamins 10 ml/Magnesium Sulfate 8 meq/ Thiamine HCl 100 mg/Dextrose 1,013.2 ml @ 125.001 mls/hr DAILY@1800 INJ 08/15/24 18:00 Cancel Amlodipine Besylate 10 mg DAILY PO 08/16/24 10:00 08/17/24 10:14 10 MG Pantoprazole Sodium 40 mg DAILY IV 08/16/24 10:00 08/17/24 10:29 40 MG Folic Acid 1 mg DAILY PO 08/17/24 10:00 08/17/24 10:12 1 MG Multivitamins 1 tab DAILY PO 08/17/24 10:00 08/17/24 10:12 1 TAB Magnesium Oxide 400 mg DAILY PO 08/17/24 10:00 08/17/24 10:12 400 MG Thiamine HCl 100 mg DAILY PO 08/17/24 10:00 08/17/24 10:30 100 MG Cefazolin Sodium 50 ml @ 100 mls/hr Q8HR IV 08/16/24 17:45 08/17/24 06:26 100 MLS/HR Metronidazole 100 ml @ 100 mls/hr Q8HR IV 08/16/24 14:00 08/17/24 12:29 100 MLS/HR Morphine Sulfate 1 mg Q4HP PRN IV 08/16/24 14:00 UNV Morphine Sulfate 1 mg Q4HPRN PRN IV 08/16/24 14:15 Cancel Morphine Sulfate 1 mg Q4HPRN PRN IV 08/16/24 15:00 08/17/24 05:40 1 MG Metformin HCl 500 mg BIDWM PO 08/17/24 08:00 General: Normal, Well developed, Obese Head/Eyes: Normal ENT: Normal Neck: Normal Lungs: Normal Cardiovascular: Normal, Regular rate and rhythm Abdominal: Soft Abdomen quadrants: RUQ Tenderness; LUQ Tenderness; LLQ Tenderness; RLQ Tenderness Musculoskeletal: Normal Extremities: Normal Skin: Normal Labs and Microbiology Laboratory Tests 08/17/24 05:39 08/16/24 05:18 Test 08/16/24 05:18 Range/Units Serum Glucose 189 H 74-106 mg/dL Ass/Plan Labs and/or images reviewed: Labs reviewed by me, Image(s) reviewed by me Problems(with codes): (1) Acute cholecystitis Assessment/Plan 08/17/24 complaint of abdominal pain, abdomen appropriately tender abdomen soft , non distended wound clean dry and intact tolerating diet, passing gas Plan: patient to ambulate advance diet as tolerated ok to discharge per surgery point of view in 24 hours Prognosis: Good Plan discussed with patient, Dr. 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
--- NOTE | 2024-08-17 15:03 | DVHPN2 ---
Subjective Has persistent epigastric and right upper quadrant pain. Reviewed: Care Plan, H&P, Labs, Medications, Previous Orders Changes from previous H/P or p: No Changes General: Per HPI Eyes: No Pain, No Vision change, No Conjunctivae inflammation, No Eyelid inflammation, No Other, No Redness ENT: No Ear pain, No Ear discharge, No Nose pain, No Nose discharge, No Nose congestion, No Mouth pain, No Mouth swelling, No Throat pain, No Throat swelling, No Other Cardiovascular: Chest Pain (epigastric); No Palpitations, No Orthopnea, No Paroxysmal Noc. Dyspnea, No Edema, No Lt Headedness, No Other Respiratory: No Cough, No Dry, No Shortness of breath, No SOB with excertion, No Wheezing, No Hemoptysis, No Pleuritic Pain, No Sputum, No Other Gastrointestinal: Nausea; No Vomiting; Abdominal Pain; No Diarrhea, No Constipation, No Melena, No Hematochezia, No Other Genitourinary: No Dysuria, No Frequency, No Incontinence, No Hematuria, No Retention, No Other Musculoskeletal: No other, No neck pain, No shoulder pain, No arm pain, No back pain, No hand pain, No leg pain, No foot pain Skin: No Rash, No Lesions, No Jaundice, No Bruising, No Other Objective Vitals Vital Signs Date Time Temp Pulse Resp B/P (MAP) Pulse Ox O2 Delivery O2 Flow Rate FiO2 08/17/24 13:00 98.7 80 18 134/69 (90) 96 98.7 08/17/24 08:00 Nasal Cannula* 2 28 Intake/Output Intake and Output 08/17/24 07:00 Intake Total 2250 ml Output Total 3170 ml Balance -920 ml Intake Oral 800 ml IV Total 1450 ml Output Urine Total 3100 ml Drainage Total 70 ml General Appearance: Alert, Oriented X3, Cooperative, mild distress HEENT: Atraumatic, PERRLA Lungs: Clear to auscultation, Normal air movement Cardiovascular: Normal S1, Normal S2 Abdomen: Other (EILEEN drain with minimal serosanguineous fluid. Abdominal surgical wounds dry and intact. Patient reporting bowel flatus) Genitourinary: No Apparent Abnormalities Skin: Dry, Intact Psych/Mental Status: Mental status NL, Mood NL Medications Current Medications Medications Dose Ordered Sig/Dayo Route Start Time Stop Time Status Last Admin Dose Admin Sodium Chloride 1,000 ml @ 100 mls/hr Q10H IV 08/15/24 07:45 08/17/24 05:16 100 MLS/HR Acetaminophen/ Hydrocodone Bitart 1 tab Q4HP PRN PO 08/15/24 07:45 08/16/24 23:43 1 TAB Ondansetron HCl 4 mg Q4HP PRN IV 08/15/24 07:45 Docusate Sodium 100 mg BIDPRN PRN PO 08/15/24 07:45 Acetaminophen 650 mg Q6HP PRN PO 08/15/24 07:45 08/16/24 15:25 650 MG Hydralazine HCl 10 mg Q6HP PRN IV 08/15/24 07:45 08/15/24 14:16 10 MG Lorazepam 1 mg Q2HP PRN IV 08/15/24 10:15 Diagnostic Test (Pha) 1 strip Q6HR 08/15/24 12:00 08/17/24 12:23 1 STRIP Insulin Human Regular Q6HR SC 08/15/24 12:00 08/17/24 12:28 3 UNITS Dextrose 50 ml UD PRN IV 08/15/24 11:15 Folic Acid 1 mg/ Multivitamins 10 ml/Magnesium Sulfate 8 meq/ Thiamine HCl 100 mg/Dextrose 1,013.2 ml @ 125.001 mls/hr DAILY@1800 INJ 08/15/24 18:00 Cancel Amlodipine Besylate 10 mg DAILY PO 08/16/24 10:00 08/17/24 10:14 10 MG Pantoprazole Sodium 40 mg DAILY IV 08/16/24 10:00 08/17/24 10:29 40 MG Folic Acid 1 mg DAILY PO 08/17/24 10:00 08/17/24 10:12 1 MG Multivitamins 1 tab DAILY PO 08/17/24 10:00 08/17/24 10:12 1 TAB Magnesium Oxide 400 mg DAILY PO 08/17/24 10:00 08/17/24 10:12 400 MG Thiamine HCl 100 mg DAILY PO 08/17/24 10:00 08/17/24 10:30 100 MG Cefazolin Sodium 50 ml @ 100 mls/hr Q8HR IV 08/16/24 17:45 08/17/24 14:46 100 MLS/HR Metronidazole 100 ml @ 100 mls/hr Q8HR IV 08/16/24 14:00 08/17/24 12:29 100 MLS/HR Morphine Sulfate 1 mg Q4HP PRN IV 08/16/24 14:00 UNV Morphine Sulfate 1 mg Q4HPRN PRN IV 08/16/24 14:15 Cancel Morphine Sulfate 1 mg Q4HPRN PRN IV 08/16/24 15:00 08/17/24 05:40 1 MG Metformin HCl 500 mg BIDWM PO 08/17/24 08:00 Laboratory Results Laboratory Tests 08/16/24 05:18 08/17/24 05:39 LFT Test 08/17/24 05:39 Total Bilirubin 0.7 mg/dL (0.2-1.0) Labs and/or images reviewed: Labs reviewed by me, Image(s) reviewed by me Assessment/Plan Assessment/Plan Impression: -acute cholecystitis -diabetes mellitus, new diagnosis -obesity -polysubstance abuse: Alcohol, tobacco, marijuana -hypertensive crisis Plan: Events: Patient states his pain has improved. Tolerating oral intake. Passing gas. Surgical recommendations for DC in a.m.. Advance diet as tolerated -continue thiamine, MVI daily -diabetic education -continue regular insulin sliding scale and metformin 500 mg p.o. b.i.d. -pain management: [place], p.r.n. morphine -add amlodipine 10 mg p.o. daily -continue anxiolytics, benzodiazepines p.r.n. -repeat labs in a.m. -PPI Long discussion made with the patient regarding plan of care including gallbladder ultrasound as well as CT scan. Patient agreeable for surgery at this time. Total time spent with patient discussing and formulating plan of care: 35 minutes. This medical document was created using an electronic medical record system with [employer] dictation system. Although this document has been carefully reviewed, there may still be some phonetic and typographical errors. These areas are purely typographical due to imperfections of the software programs, and do not reflect any compromise in the patient's medical care. Plan discussed with: Patient, Other (RN) My Orders Orders - BREE HEREDIA NP Procedure Category Date Status Time Metformin PHA 08/17/24 In Process Hydrochloride 08:00 *Rn Supply Chain Associate REFER 08/17/24 Transmitted Referral 07:47 Communication Order ORDERS 08/17/24 Transmitted 07:47 * Dietary Consult CONS 08/17/24 Transmitted 07:47 Comprehensive LAB 08/18/24 Verified Metabolic Panel 04:00 Date of Service: Aug 17, 2024 Billing Provider: BREE HEREDIA NP Common Visit Codes: [id number] INP/OBS CARE(HIGH) BREE HEREDIA NP Aug 17, 2024 15:03
[2024-08-17 16:34] VITALS: BP 136/101; PULSE 89; RESP 18; TEMP 99.3; O2SAT 97
[2024-08-17 21:00] VITALS: BP 149/74; PULSE 80; RESP 16; TEMP 98.1; O2SAT 97
[2024-08-17] MEDS: metFORMIN HYDROCHLORIDE 500 MG TAB PO SCH (22:30)
[2024-08-18 01:00] VITALS: BP 157/86; PULSE 78; RESP 18; TEMP 98.2; O2SAT 95
[2024-08-18 05:00] VITALS: BP 160/77; PULSE 95; RESP 20; TEMP 98.3; O2SAT 95
[2024-08-18 06:43] LABS: Alkaline Phosphatase 80 U/L (46-116); Anion Gap 8 (5-15); BUN/Creatinine Ratio 8.3 (10.0-20.0); Calcium 8.7 mg/dL (8.7-10.4); Carbon Dioxide 26 mmol/L (20-31); Chloride 104 mmol/L (98-107); Potassium 3.7 mmol/L (3.5-5.1); Sodium 138 mmol/L (136-145); Total Protein 6.1 g/dL (5.7-8.2)
[2024-08-18 06:44] LABS: Albumin 3.9 g/dL (3.2-4.8); Aspartate Aminotransferase 32 U/L (13-40); Bilirubin, Total 0.5 mg/dL (0.2-1.0)
[2024-08-18 06:46] LABS: Glucose 174 mg/dL (74-106)
[2024-08-18 06:47] LABS: Alanine Aminotransferase 69 U/L (7-40); Blood Urea Nitrogen 7 mg/dL (9-23)
[2024-08-18 08:31] VITALS: BP 126/80; PULSE 74; RESP 16; TEMP 98.7; O2SAT 97
[2024-08-18 13:23] VITALS: BP 127/85; PULSE 85; RESP 16; TEMP 98; O2SAT 97
[2024-08-18] MEDS ORDERED: BLOO1KIT60 XX (15:37)
[2024-08-18] MEDS ORDERED: HYDR-4902 PO (15:37)
[2024-08-18] MEDS ORDERED: AMOX500T86 PO (15:37)
[2024-08-18] MEDS ORDERED: METF-370 PO (15:37)
[2024-08-18] MEDS ORDERED: AMLO1TAB23 PO (15:38)
[2024-08-18] MEDS ORDERED: DOCU-94 PO (15:38)
--- NOTE | 2024-08-18 15:45 | DVHDS2 ---
Discharge Summary Date of Admission Aug 15, 2024 at 07:31 Date of Discharge: Aug 18, 2024 Admitting Diagnosis Acute cholecystitis Labs/Diagnostic Data: Laboratory Results Test 08/18/24 11:36 08/18/24 05:20 08/17/24 05:39 08/15/24 08:37 POC Glucose 162 mg/dl (70-106) Sodium Level 138 mmol/L (136-145) Potassium Level 3.7 mmol/L (3.5-5.1) Chloride Level 104 mmol/L (98-107) Carbon Dioxide Level 26 mmol/L (20-31) Anion Gap 8 (5-15) Blood Urea Nitrogen 7 mg/dL (9-23) Creatinine 0.84 mg/dL (0.700-1.30) Glomerular Filtration Rate Calc 109 mL/min (>90) BUN/Creatinine Ratio 8.3 (10.0-20.0) Serum Glucose 174 mg/dL (74-106) Calcium Level 8.7 mg/dL (8.7-10.4) Total Bilirubin 0.5 mg/dL (0.2-1.0) Aspartate Amino Transferase (AST) 32 U/L (13-40) Alanine Aminotransferase (ALT) 69 U/L (7-40) Alkaline Phosphatase 80 U/L (46-116) Total Protein 6.1 g/dL (5.7-8.2) Albumin 3.9 g/dL (3.2-4.8) White Blood Count 9.1 10^3/uL (4.4-10.8) Red Blood Count 4.61 10^6/uL (4.5-5.90) Hemoglobin 15.0 g/dL (13.5-17.5) Hematocrit 42.8 % (41.0-53.0) Mean Corpuscular Volume 92.8 fL (80.0-100.0) Mean Corpuscular Hemoglobin 32.5 pg (28.0-32.0) Mean Corpuscular Hemoglobin Concent 35.0 g/dL (32.0-36.0) Red Cell Distribution Width 13.2 % (11.8-14.3) Platelet Count 172 10^3/uL (140-450) Mean Platelet Volume 8.6 fL (6.9-10.8) Neutrophils (%) (Auto) 72.4 % (37.0-80.0) Lymphocytes (%) (Auto) 16.9 % (10.0-50.0) Monocytes (%) (Auto) 6.8 % (0.0-12.0) Eosinophils (%) (Auto) 3.3 % (0.0-7.0) Basophils (%) (Auto) 0.6 % (0.0-2.0) Neutrophils # (Auto) 6.6 10 ^3/uL (1.6-8.6) Lymphocytes # (Auto) 1.5 10 ^3/uL (0.4-5.4) Monocytes # (Auto) 0.6 10 ^3/uL (0-1.3) Eosinophils # (Auto) 0.3 10 ^3/uL (0-0.8) Basophils # (Auto) 0.1 10 ^3/uL (0-0.2) Nucleated Red Blood Cells 0.1 % Prothrombin Time 10.6 sec (9.3-11.8) Prothrombin Time INR 1.00 (0.9-1.15) Activated Partial Thromboplast Time 26.4 SEC (24.5-34.5) Test 08/15/24 03:23 08/15/24 02:30 Troponin I High Sensitivity 5 ng/L (</=54) Hemoglobin A1c 8.2 % A1C (<5.7) Other Laboratory Tests 08/18/24 05:20 08/17/24 05:39 Brief Hx & Hospital Course: History of Present Illness Brandon Mobley is a 44-year-old male with past medial history of hypertension, but has not been on medication for over 4 years due to losing weight. Patient comes in today with complaints of chest pain. He states the pain is epigastric and radiates to his RUQ. States the pain started about 1999 last night after eating an asada quesadilla about 1900. He does have associated nausea with the pain. Course of hospitalization: Patient was found to have new diagnosis of hypertension, diabetes mellitus in addition to having acute cholecystitis. Patient underwent surgery two days ago, laparoscopic procedure. Postoperatively, the patient's blood sugar and blood pressure has been controlled. Patient has been ambulating, tolerating consistent carbohydrate diet without any problems. Patient is passing gas. Pain has been controlled with oral narcotics. Patient has been cleared to be discharged home, at which time he will follow up with the discharge Clinic in one week. Patient will also have a prescription for amlodipine, metformin, glucometer, Augmentin 500 mg p.o. twice a day for seven days, [place] 5/325 q.8 hours as needed for [id number] pain, as well as Colace 100 mg p.o. b.i.d.. Patient was instructed to keep a log of his blood sugars twice a day for the next seven days and bring it to his postop appointments with both the surgeon as well as a discharge Clinic. Patient was agreeable with discharge plan. All questions answered. Physical examination General: Alert and Oriented x3. No acute distress. Well-nourished. Eyes: EOMI. Anicteric. HENT: Moist mucous membranes. Lungs: Clear to auscultation bilaterally. No accessory muscle use. Cardiovascular: Regular rate and rhythm. No murmur. No JVD. Abdomen: Soft, non-tender and non-distended. No palpable masses. Extremities: No edema. Non-tender. Skin: No rashes or lesions. Warm. Neurologic: No focal neurological deficits. CN II-XII grossly intact, but not individually tested. Psychiatric: Cooperative. Appropriate mood and affect. Total time spent with patient discussing and formulating plan of care: 35 minutes. This medical document was created using an electronic medical record system with [employer] dictation system. Although this document has been carefully reviewed, there may still be some phonetic and typographical errors. These areas are purely typographical due to imperfections of the software programs, and do not reflect any compromise in the patient's medical care. Consults/Reason for consult General surgery: Acute cholecystitis Operations or Procedures 08/16/2024: Laparoscopic cholecystectomy Condition at Discharge: Fair Final Diagnosis/Problems List Acute Cholecystitis Secondary diagnosis: -diabetes mellitus, new diagnosis -obesity -polysubstance abuse: Alcohol, tobacco, marijuana -hypertensive crisis Discharge Disposition: Home Discharge Instruct/Medications Diet: Consistent carbohydrate Activity: No Restrictions, As Tolerated Follow Up/Referral: Follow up with surgeon in 7-10 days Follow up with DC clinic in one week Medications: Augmentin 500 mg p.o. b.i.d. x7 days [place] 5/325 q.8 hours as needed for [id number] pain Colace 100 mg p.o. b.i.d. until patient has bowel movement Metformin 500 mg p.o. b.i.d. Amlodipine 10 mg p.o. daily Check blood sugar twice a day and bring log to discharge Clinic appointment 36 Discharge Statement: "Patient was advised to return to the ER or call 911 if any headaches, dizziness, shortness of breath, chest pain, abdominal pain, bleeding, fevers, or worsening of medical condition. Patient was counseled about treatment plan, medications, possible side effects, patientverbalized understanding. All questions were answered to the best of my ability. This discharge took greater then 30 minutes in planning, reviewing documentation, counseling the patient, and discussing with other team members." ASSESSMENT ASSESSMENT Assessment Acute Cholecystitis Date of Service: Aug 18, 2024 Billing Provider: BREE HEREDIA NP Common Visit Codes: [id number]-GYM/OBS DISCH DAY >30min BREE HEREDIA NP Aug 18, 2024 15:45
--- NOTE | 2024-08-18 16:51 | DVHPN2 ---
Progress Note Date Seen: Aug 18, 2024 Medical Necessity Reason Pt with a Central, PICC or Fol: No Objective vital signs Vital Sign Date Time Temp Pulse Resp B/P (MAP) Pulse Ox O2 Delivery O2 Flow Rate FiO2 08/18/24 13:23 98.0 85 16 127/85 (99) 97 98.0 08/18/24 08:00 Nasal Cannula* 2 28 Total Intake and Output 08/17/24 08/17/24 08/18/24 15:00 23:00 07:00 Intake Total 100 ml 4200 ml 1390 ml Output Total 2425 ml 3400 ml Balance 100 ml 1775 ml -2010 ml medications Current Medications Medications Dose Ordered Sig/Dayo Route Start Time Stop Time Status Last Admin Dose Admin Sodium Chloride 1,000 ml @ 100 mls/hr Q10H IV 08/15/24 07:45 08/18/24 15:45 100 MLS/HR Acetaminophen/ Hydrocodone Bitart 1 tab Q4HP PRN PO 08/15/24 07:45 08/18/24 00:04 1 TAB Ondansetron HCl 4 mg Q4HP PRN IV 08/15/24 07:45 Docusate Sodium 100 mg BIDPRN PRN PO 08/15/24 07:45 Acetaminophen 650 mg Q6HP PRN PO 08/15/24 07:45 08/16/24 15:25 650 MG Hydralazine HCl 10 mg Q6HP PRN IV 08/15/24 07:45 08/15/24 14:16 10 MG Lorazepam 1 mg Q2HP PRN IV 08/15/24 10:15 Diagnostic Test (Pha) 1 strip Q6HR 08/15/24 12:00 08/18/24 12:11 1 STRIP Insulin Human Regular Q6HR SC 08/15/24 12:00 08/18/24 12:18 3 UNITS Dextrose 50 ml UD PRN IV 08/15/24 11:15 Folic Acid 1 mg/ Multivitamins 10 ml/Magnesium Sulfate 8 meq/ Thiamine HCl 100 mg/Dextrose 1,013.2 ml @ 125.001 mls/hr DAILY@1800 INJ 08/15/24 18:00 Cancel Amlodipine Besylate 10 mg DAILY PO 08/16/24 10:00 08/18/24 09:58 10 MG Pantoprazole Sodium 40 mg DAILY IV 08/16/24 10:00 08/18/24 09:54 40 MG Folic Acid 1 mg DAILY PO 08/17/24 10:00 08/18/24 09:54 1 MG Multivitamins 1 tab DAILY PO 08/17/24 10:00 08/18/24 09:54 1 TAB Magnesium Oxide 400 mg DAILY PO 08/17/24 10:00 08/18/24 09:54 400 MG Thiamine HCl 100 mg DAILY PO 08/17/24 10:00 08/18/24 11:18 100 MG Cefazolin Sodium 50 ml @ 100 mls/hr Q8HR IV 08/16/24 17:45 08/18/24 12:32 100 MLS/HR Metronidazole 100 ml @ 100 mls/hr Q8HR IV 08/16/24 14:00 08/18/24 13:11 100 MLS/HR Morphine Sulfate 1 mg Q4HP PRN IV 08/16/24 14:00 UNV Morphine Sulfate 1 mg Q4HPRN PRN IV 08/16/24 14:15 Cancel Morphine Sulfate 1 mg Q4HPRN PRN IV 08/16/24 15:00 08/17/24 17:00 1 MG Metformin HCl 500 mg BIDWM PO 08/17/24 08:00 08/18/24 09:57 500 MG laboratory and microbiology Laboratory Tests 08/18/24 05:20 08/17/24 05:39 Test 08/18/24 05:20 Range/Units Serum Glucose 174 H 74-106 mg/dL Problem List/Assessment/Plan Problem List/Assessment/Plan 08/18/24 DOING WELL, CLEARED FOR DISCHARGE, INSTRUCTIONS GIVEN, RETURN TO SEE ME IN TEN DAYS Plan discussed with: Patient Dietary Evaluation Review Recommendations by RD: Dietary education by RD Comments: 1. Follow a 2gna sodium CCCHO-60 diet. Reach Goal weight at 200lbs. 2. Avoid ETOH and other recreational substances, 3. Refer him to [facility] software educator. Expected Outcomes/Goals: Meet goal weight gradually, controlled DM. ELISA ALEMAN MD Aug 18, 2024 16:51
[2024-08-18 17:02] VITALS: BP 138/76; PULSE 97; RESP 16; TEMP 98.4; O2SAT 100
[2024-08-18 17:11] VITALS: BP 126/80; TEMP 36.9
== END 2024-08-18 18:00 | disposition home or self-care (01) | DRG 418 ==
LOC: ER 02:15 → OVERFLOW 07:31 → CENTRAL 08-16 15:46
PROVIDERS: ADMIT Nurse Practitioner Acute Care; ATTEND Nurse Practitioner Acute Care
PROC: 0FT44ZZ Resection of Gallbladder, Percutaneous Endoscopic Approach (ICD-10-PCS; principal; 2024-08-16 09:43)
DX: K80.12 Calculus of gallbladder with acute and chronic cholecystitis without obstruction (principal); I16.9 Hypertensive crisis, unspecified; E11.65 Type 2 diabetes mellitus with hyperglycemia; F17.200 Nicotine dependence, unspecified, uncomplicated; E66.01 Morbid (severe) obesity due to excess calories; Z71.6 Tobacco abuse counseling; Z68.34 Body mass index [BMI] 34.0-34.9, adult; Z79.899 Other long term (current) drug therapy
CPT/HCPCS: 36415; 71045; 74177; 76700; 80048; 80053; 82247; 82962; 83036; 84484; 85025; 85610; 85730; 86850; 86900; 86901; 93005; 96361; 96365; 96375; 96376; 99291; G0378; J1100; J1815; J2250; J2405; J2470; J2704; J3490